=== PATIENT | male | born 1960 | race Caucasian/White ===

== ENCOUNTER 2020-04-21 08:45 | Day surgery (SDC) | payer OTHER ==
[~2020-04-21] VITALS: Ht 177.8 cm; Wt 86.8 kg
[~2020-04-21 08:45] MED LIST: ASCO500 PO; Allergy Relief10 M1 PO; Aspir 8181 MG PO; GLUCHON PO; MAG-OXIDE MAGN200 MG PO; MULTI-VITAMIN1 EAC2 PO
--- NOTE | 2020-04-21 09:15 | NUR ---
04/21/20 0915 Selene Melton 1 TRY RIGHT HAND VALVE
--- NOTE | 2020-04-21 10:39 | NUR ---
04/21/20 1039 Nakul Damon PT STATES HE IS READY TO GO HOME. VS WNL.
== END 2020-04-21 10:40 | disposition home or self-care (01) ==
LOC: ORSCSDS 08:45
DX: Z12.11 Encounter for screening for malignant neoplasm of colon (principal); D12.0 Benign neoplasm of cecum; K63.5 Polyp of colon; K62.89 Other specified diseases of anus and rectum; K64.8 Other hemorrhoids; Z79.82 Long term (current) use of aspirin; Z79.899 Other long term (current) drug therapy
CPT/HCPCS: 88305; J2704; J7120

== ENCOUNTER → 2020-04-28 | Outpatient (CLI) | payer OTHER ==
[2020-04-30 15:54] LABS: CORONAVIRUS (COVID19) CSH-NRL Positive (Negative)
== END ==
LOC: PLD 12:01 → LAB SHORT 12:01
PROVIDERS: Physician Assistant
DX: U07.1 COVID-19 (principal)
CPT/HCPCS: U0003

== ENCOUNTER → 2021-02-10 | Outpatient (CLI) | payer OTHER | LOC: LAB SHORT 12:11 → LAB 12:11 | DX: D48.5 Neoplasm of uncertain behavior of skin (principal); L57.0 Actinic keratosis | CPT/HCPCS: 88305 ==

== ENCOUNTER 2021-04-17 09:27 | Day surgery (SDC) | payer OTHER ==
[~2021-04-17] VITALS: Ht 177.8 cm; Wt 88.2 kg
[2021-04-17] MEDS ORDERED: METHI10 (09:49)
--- NOTE | 2021-04-17 10:04 | NUR ---
04/17/21 Sorin4 Selene Melton 1 TRY RIGHT HAND MOVED
== END 2021-04-17 11:49 | disposition home or self-care (01) ==
LOC: ORSCSDS 09:27
PROVIDERS: Student in an Organized Health Care Education/Training Program
PROC: 0DB58ZX Excision of Esophagus, Via Natural or Artificial Opening Endoscopic, Diagnostic (ICD-10-PCS; principal; 2021-04-17 10:45)
PROC: 0DB48ZX Excision of Esophagogastric Junction, Via Natural or Artificial Opening Endoscopic, Diagnostic (ICD-10-PCS; principal; 2021-04-17 10:45)
DX: R13.10 Dysphagia, unspecified (principal); K22.10 Ulcer of esophagus without bleeding; Z79.899 Other long term (current) drug therapy; K44.9 Diaphragmatic hernia without obstruction or gangrene; K22.2 Esophageal obstruction
CPT/HCPCS: 88305; 88312; J2704; J7120

== ENCOUNTER 2023-02-20 11:26 | Day surgery (SDC) | payer OTHER ==
[~2023-02-20] VITALS: Ht 177.8 cm; Wt 92.0 kg
[~2023-02-20 11:26] MED LIST changes: +METHI10
[2023-02-20] MEDS ORDERED: FLOVENT HFA12 GM INH (11:54)
[2023-02-20] MEDS ORDERED: OMEP20ER PO (11:55)
--- NOTE | 2023-02-20 13:03 | NUR ---
02/20/23 1302 Selma Carbone HEAD ON DONUT, PILLOW UNDER KNEES, RIGHT ARM TUCKED, LEFT ARM SECURED ON PADDED ARM BOARD.
[2023-02-20 13:57] VITALS: BP 139/92
== END 2023-02-20 14:33 | disposition home or self-care (01) ==
LOC: ORSCSDS 11:26
PROVIDERS: Otolaryngology
PROC: 0CBT8ZX Excision of Right Vocal Cord, Via Natural or Artificial Opening Endoscopic, Diagnostic (ICD-10-PCS; principal; 2023-02-20 13:00)
DX: J38.3 Other diseases of vocal cords (principal); K21.9 Gastro-esophageal reflux disease without esophagitis; E05.00 Thyrotoxicosis with diffuse goiter without thyrotoxic crisis or storm; Z79.899 Other long term (current) drug therapy; Z79.82 Long term (current) use of aspirin
CPT/HCPCS: 88304; J0171; J1100; J2250; J2405; J2704; J3010; Q9968

== ENCOUNTER → 2024-08-12 | Outpatient (CLI) | payer OTHER ==
[~2024-08-12] MED LIST changes: +FLOVENT HFA12 GM INH; +OMEP20ER PO
[2024-08-12 15:35] LABS: BASOPHILS ABSOLUTE AUTO 0.06 K/mm3 (0.00-0.23); BASOPHILS PERCENT AUTO 1 % (0-2); EOSINOPHILS ABSOLUTE AUTO 0.15 K/mm3 (0.00-0.68); EOSINOPHILS PERCENT AUTO 3 % (0-6); Hematocrit 47.5 % (37.0-53.0); Hemoglobin 16.1 g/dL (13.5-17.5); IMMATURE GRAN ABSOLUTE AUTO 0.02 K/mm3 (0.00-0.10); IMMATURE GRAN PERCENT AUTO 0 % (0-1); LYMPHOCYTES ABSOLUTE AUTO 0.72 K/mm3 (0.84-5.20); LYMPHOCYTES PERCENT AUTO 13 % (21-46); MONOCYTES ABSOLUTE AUTO 0.79 K/mm3 (0.16-1.47); MONOCYTES PERCENT AUTO 15 % (4-13); Mean Corpuscular HGB 30.7 pg (26.0-34.0); Mean Corpuscular HGB Conc 33.9 g/dL (31.5-36.5); Mean Corpuscular Volume 91 fL (80-100); Mean Platelet Volume 9.9 fL (9.1-12.4); NEUTROPHILS ABSOLUTE AUTO 3.64 K/mm3 (1.96-9.15); NEUTROPHILS PERCENT AUTO 68 % (41-73); Platelet Count 229 K/mm3 (150-400); RDW Standard Deviation 43.1 fL (35.1-46.3); Red Blood Cell Count 5.24 M/mm3 (4.30-5.90); White Blood Cell Count 5.38 K/mm3 (4.00-11.30)
[2024-08-12 15:46] LABS: Albumin, Blood 4.1 g/dL (3.4-5.0); Bilirubin, Total 0.7 mg/dL (0.1-1.0); Bun/Creatinine Ratio 14.2 (12.0-20.0); Calcium, Blood 9.1 mg/dL (8.5-10.1); Creatinine, Blood 1.27 mg/dL (0.60-1.20); Potassium, Blood 3.8 mmol/L (3.5-5.5); Total Protein, Blood 8.1 g/dL (6.4-8.2)
== END ==
LOC: LAB 15:31 → LAB SHORT 15:31
PROVIDERS: Physician Assistant
DX: R53.1 Weakness (principal)
CPT/HCPCS: 80053; 85025